=== PATIENT | female | born 1990 | race Caucasian/White ===

== ENCOUNTER 2021-06-17 17:20 | Emergency (ER) | payer MEDICAID ==
[~2021-06-17] VITALS: Ht 167.6 cm; Wt 66.2 kg
[2021-06-17 17:40] VITALS: BP 145/31
[2021-06-17] MEDS ORDERED: ONDANSETRON 4 MG ODT PO ONE (17:50)
--- NOTE | 2021-06-17 17:50 | NUR ---
PATIENT W/C ASSISTED TO BED 8.
[2021-06-17] MEDS ORDERED: KETOROLAC 60 MG/2 ML VIAL IM ONE (18:05)
[2021-06-17] MEDS ORDERED: CYCLOBENZAPRINE 10 MG TAB PO ONE (18:05)
[2021-06-17] MEDS ORDERED: ACETAMINOPHEN EXTRA STRENGTH 500 MG TAB PO ONE (18:05)
--- NOTE | 2021-06-17 18:09 | NUR ---
31 y/o female bib self from home, c/o lower back pain with N&V thst started yesterday after starting her period. skin is pink/warm/dry. a&o x4 with even and steady gait. lungs clear bl, heart rate even and regular. pt denies dysuria, hematuria, urinary frequency or retention, or anyone sick in the household with the same symptoms. pt denies any fever, cp, sob, or cough at this time. pt states pain is 10/10 at this time. vss. patient positioned for comfort. hob elevated. bed down. ermd made aware of pt. pmh: htn nka med: denies
[2021-06-17] MEDS ORDERED: CYCL-711 PO (18:27)
[2021-06-17] MEDS ORDERED: ACET-10509 PO (18:27)
[2021-06-17] MEDS ORDERED: LID5T TP (18:27)
[2021-06-17] MEDS ORDERED: ONDA-188 SL (18:27)
[2021-06-17] MEDS ORDERED: IBUP-2213 PO (18:27)
--- NOTE | 2021-06-17 18:40 | NUR ---
pt tolerated water with meds. po challenge done at this time
--- NOTE | 2021-06-17 19:09 | NUR ---
jaswinder (sister) [phone] was contacted per pt request, pt will be picked up in lobby at this time
--- NOTE | 2021-06-17 19:10 | NUR ---
Patient discharged with v/s stable. Written and verbal after care instructions given and explained. Patient alert, oriented and verbalized understanding of instructions. Ambulatory with sister to car. All questions addressed prior to discharge. ID band removed. Patient advised to follow up with PMD. Rx of acetaminophen, cyclobenzaprine, ibuprofen, lidocaine, ondansetron (sent) given. Patient educated on indication of medication including possible reaction and side effects. Opportunity to ask questions provided and answered. work note given
[2021-06-17 19:11] VITALS: BP 145/31
== END 2021-06-17 19:10 | disposition home or self-care (01) ==
LOC: MED 17:20
DX: M54.31 Sciatica, right side (principal); R11.10 Vomiting, unspecified
CPT/HCPCS: 81002; 81025; 96372; 99284; J1885; Q0162

== ENCOUNTER 2021-06-17 20:05 | Emergency (ER) | payer MEDICAID ==
[~2021-06-17 20:05] MED LIST: ACET-10509 PO; CYCL-711 PO; IBUP-2213 PO; LID5T TP; ONDA-188 SL
--- NOTE | 2021-06-17 21:08 | NUR ---
PT CALLED AT LOBBY, OUTSIDE AND TENT. NO ANSWER AT THIS TIME.
--- NOTE | 2021-06-17 21:21 | NUR ---
PT CALLED AT LOBBY, OUTSIDE AND TENT. NO ANSWER AT THIS TIME.
--- NOTE | 2021-06-17 21:27 | NUR ---
CONTACTED PT SISTER FROM [employer]TACT INFO IN [employer]. NO ANSWER AT THIS TIME.
--- NOTE | 2021-06-17 21:27 | NUR ---
PATIENT LEFT WITHOUT BEING SEEN BY DR. HADDAD. NO FURTHER CARE PROVIDED FOR PATIENT.
== END 2021-06-17 21:08 | disposition left against medical advice (07) ==
LOC: MED 20:05
DX: Z48.00 Encounter for change or removal of nonsurgical wound dressing (principal); Z53.21 Procedure and treatment not carried out due to patient leaving prior to being seen by health care provider